=== PATIENT | female | born 2000 | race Caucasian/White ===

== ENCOUNTER 2022-07-17 21:30 | Emergency (ER) | payer MEDICAID ==
[~2022-07-17] VITALS: Ht 157.5 cm; Wt 66.7 kg
[2022-07-17 21:38] VITALS: BP_SYST 121
[2022-07-17 22:43] VITALS: BP_SYST 115
== END 2022-07-17 22:42 | disposition home or self-care (01) ==
LOC: SED 21:30
DX: S01.511A Laceration without foreign body of lip, initial encounter (principal); Z79.899 Other long term (current) drug therapy; W20.8XXA Other cause of strike by thrown, projected or falling object, initial encounter; Y93.89 Activity, other specified; Y92.89 Other specified places as the place of occurrence of the external cause; Y99.8 Other external cause status
CPT/HCPCS: 99282